=== PATIENT | male | born 1980 | race Caucasian/White ===

== ENCOUNTER 2022-08-20 13:38 | Inpatient (IN) | payer OTHER ==
[2022-08-20 15:12] VITALS: BMI 26.0
[2022-08-20] MEDS ORDERED: BENZOCAINE/MENTHOL (CHLORASEPTIC ) LOZENGE MM PRN (16:27)
[2022-08-20] MEDS ORDERED: MAGNESIUM HYDROX 2400MG/30ML ORAL SUSPENSION 30 ML CUP PO PRN (16:27)
[2022-08-20] MEDS ORDERED: methaDONE HCL 10 MG TABLET (FOR DETOX USE ONLY) PO ONE (16:27)
[2022-08-20] MEDS ORDERED: NALOXONE HCL (KLOXXADO) 8 MG SPRAY NS PRN (16:27)
[2022-08-20] MEDS ORDERED: DICYCLOMINE HCL 10 MG CAPSULE PO PRN (16:27)
[2022-08-20] MEDS ORDERED: guaiFENesin 600 MG TABLET.ER (FP) PO PRN (16:27)
[2022-08-20] MEDS ORDERED: IBUPROFEN 400 MG TABLET (FP) PO PRN (16:27)
[2022-08-20] MEDS ORDERED: ACETAMINOPHEN 325 MG TABLET (FP) PO PRN (16:27)
[2022-08-20] MEDS ORDERED: LOPERAMIDE HCL 2 MG CAPSULE PO PRN (16:27)
[2022-08-20] MEDS ORDERED: MAG HYDROX/AL HYDROX/SIMETH 30 ML UNIT-DOSE CUP PO PRN (16:27)
[2022-08-20] MEDS ORDERED: POLYETHYLENE GLYCOL (HEALTHYLAX) 3350 17 GM PACKET PO PRN (16:27)
[2022-08-20] MEDS ORDERED: ONDANSETRON *ODT* 4 MG TABLET SL PRN (16:27)
[2022-08-20] MEDS ORDERED: BISMUTH SUBSALICYLATE 524 MG/30 ML PO PRN (16:27)
[2022-08-20] MEDS ORDERED: NALOXONE HCL 0.4 MG/ML VIAL IM PRN (16:27)
[2022-08-20] MEDS ORDERED: NICOTINE 10 MG CARTRIDGE (INHALER) IH PRN (16:27)
[2022-08-20] MEDS ORDERED: BENZONATATE 200 MG CAPSULE PO PRN (16:27)
[2022-08-20] MEDS ORDERED: methaDONE HCL 10 MG TABLET (FOR DETOX USE ONLY) ONE (17:13)
[2022-08-20] MEDS: cloNIDine HCL 0.1 MG TABLET PO PRN (17:51)
[2022-08-20] MEDS: NICOTINE POLACRILEX 2 MG GUM BUC PRN (18:44)
[2022-08-20] MEDS: MELATONIN 5 MG TABLETS PO SCH (22:25)
[2022-08-20] MEDS: THIAMINE HCL 100 MG TABLET (FP) PO SCH (22:25)
[2022-08-21] MEDS: IBUPROFEN 600 MG TABLET (FP) PO PRN ×2 (05:17→17:56)
[2022-08-21] MEDS: hydrOXYzine PAMOATE 25 MG CAPSULE (FP) PO PRN ×2 (05:17→10:20)
[2022-08-21] MEDS: NICOTINE 14 MG/24 HOURS TOPICAL PATCH TD SCH (10:19)
[2022-08-21] MEDS: METHOCARBAMOL 500 MG TABLET PO PRN (10:20)
[2022-08-21] MEDS: PRENATAL VITAMINS W/ FOLIC ACID TABLET (FP) PO SCH (10:20)
[2022-08-21 11:23] LABS: POTASSIUM 4.8 mmol/L (3.5-5.1)
[2022-08-21 11:27] LABS: CALCIUM 9.1 mg/dL (8.5-10.1)
[2022-08-21 11:28] LABS: ALBUMIN 3.5 g/dl (3.4-5.0); BLOOD UREA NITROGEN 11.2 mg/dL (7-18)
[2022-08-21 11:31] LABS: CREATININE 0.7 mg/dL (0.55-1.3); HEMATOCRIT 36.2 % (35.4-49); MCH 29.6 pg (25.7-33.7); MEAN CELL VOLUME 82.3 fl (80-96); MEAN PLT VOLUME 8.2 fl (7.5-11.1); PLATELET COUNT 254 10^3/uL (134-434); RBC 4.39 M/mm3 (4.00-5.60); RDW 12.2 % (11.9-15.9); WHITE BLOOD COUNT 6.4 K/mm3 (4.0-10.0)
[2022-08-21 11:33] LABS: BILIRUBIN,TOTAL 1.2 mg/dL (0.2-1); TOT PROT 5.7 g/dl (6.4-8.2)
[2022-08-21] MEDS: cloNIDine HCL 0.1 MG TABLET PO PRN (17:58)
[2022-08-21] MEDS: MELATONIN 5 MG TABLETS PO SCH (23:18)
[2022-08-21] MEDS: THIAMINE HCL 100 MG TABLET (FP) PO SCH (23:18)
[2022-08-22] MEDS: cloNIDine HCL 0.1 MG TABLET PO PRN ×2 (07:00→22:52)
[2022-08-22] MEDS ORDERED: methaDONE HCL 10 MG TABLET (FOR DETOX USE ONLY) PO ONE (10:00)
[2022-08-22] MEDS: hydrOXYzine PAMOATE 25 MG CAPSULE (FP) PO PRN ×2 (10:13→22:52)
[2022-08-22] MEDS: PRENATAL VITAMINS W/ FOLIC ACID TABLET (FP) PO SCH (10:13)
[2022-08-22] MEDS: NICOTINE 14 MG/24 HOURS TOPICAL PATCH TD SCH (10:16)
[2022-08-22] MEDS: NICOTINE POLACRILEX 2 MG GUM BUC PRN ×3 (10:18→19:59)
[2022-08-22] MEDS: MELATONIN 5 MG TABLETS PO SCH (22:52)
[2022-08-22] MEDS: METHOCARBAMOL 500 MG TABLET PO PRN (22:52)
[2022-08-22] MEDS: THIAMINE HCL 100 MG TABLET (FP) PO SCH (22:52)
[2022-08-23] MEDS: PRENATAL VITAMINS W/ FOLIC ACID TABLET (FP) PO SCH (09:10)
[2022-08-23] MEDS: NICOTINE 14 MG/24 HOURS TOPICAL PATCH TD SCH (09:10)
[2022-08-23 09:46] VITALS: BP 117/57; PULSE 75; RESP 18; TEMP 97.3
[2022-08-24] MEDS ORDERED: methaDONE HCL 10 MG TABLET (FOR DETOX USE ONLY) PO ONE (10:00)
== END 2022-08-23 10:20 | disposition left against medical advice (07) | DRG 770 ==
LOC: YASAS 13:38 → Y6N 16:46
PROVIDERS: ADMIT Allergy & Immunology; ATTEND Surgery
PROC: HZ2ZZZZ Detoxification Services for Substance Abuse Treatment (ICD-10-PCS; principal; 2022-08-20)
DX: F11.23 Opioid dependence with withdrawal (principal); F17.210 Nicotine dependence, cigarettes, uncomplicated
CPT/HCPCS: 36415; 80053; 85027; 86780; C9803-CS; U0003; U0005